=== PATIENT | male | born 1995 ===

== ENCOUNTER 2025-01-17 21:19 | Emergency (ER) | payer SELFPAY ==
[2025-01-17 21:30] VITALS: BP 155/76
[2025-01-17 21:31] VITALS: BP 155/76
[2025-01-17] MEDS: TYLENOL 1000 MG PO (22:29)
--- NOTE | 2025-01-17 22:29 | ED.GENMED ---
History of Present Illness
General
Chief Complaint: Fever
Source: patient and spouse
Exam Limitations: none
Time Seen by Provider: 01/17/25 22:09
Nursing documentation reviewed up to this point in time: agreed with
History of Present Illness
History of Present Illness:
29-year-old male with no chronic medical issues presents with his for evaluation of flulike illness. Patient reports onset of symptoms a few days ago and they have gotten worse over the past 48 hours. He reports initially he was having
headaches and general fatigue. Over the past 48 hours developed severe myalgias, fever and chills, nausea. Today had some diarrhea. Came to the ER to be evaluated. He has not had any cough or shortness of breath. He denies any abdominal pain.
Mild nausea but no vomiting. He has not noted any rash. Denies any known sick contacts, recent travel or bug bites.
Review of Systems
Review of Systems
All Other Systems: ROS reviewed and negative except as documented in HPI and ROS
Constitutional: Reports fever, fatigue and chills
EENT: Reports runny nose; Denies sore throat
Respiratory: Denies cough or trouble breathing
Cardiac: Denies chest pain
ABD/GI: Reports nausea and diarrhea; Denies abdominal pain or vomiting
: Denies flank pain
Musculoskeletal: Reports muscle pain and back pain; Denies neck pain
Neurological: Reports dizzy and headache
Phy Exam
Physical Exam
Physical Exam:
General: Awake, alert, oriented x3; no acute distress
Head: Normocephalic, atraumatic
Eyes: Conjunctiva normal, sclera anicteric
Throat: Airway intact, handling secretions, slight erythema in the oropharynx but no tonsillar erythema or exudate, midline uvula
Neck: Trachea midline, supple without meningismus
Lungs: Clear to auscultation bilaterally, no wheezing, rales, rhonchi
Heart: Tachycardia with regular rhythm, no murmurs, gallops, or rubs
Abd: Soft, non distended, nontender, no palpable hepatosplenomegaly
Neuro: Grossly intact
Skin: no rash
Extremities: No edema in extremities, equal pulses in all extremities
Scores
Heart Failure Risk
Heart Failure Risk Score: Not Applicable
Heart Score for Chest Pain Patients
STEMI patient?: Not applicable
Withdrawal Assessment of Alcohol
Withdrawal Assessment Completed?: Not applicable
Sepsis
Sepsis Screening
Sepsis Assessment: Sepsis Ruled Out
Sepsis Screen
Sepsis Screen: Sepsis Ruled Out
Date: 01/18/25
Time: 07:45
Course
Orders/Labs/Results
Orders:
Orders
01/17/25 22:11
Acetaminophen [Tylenol] 1,000 mg PO NOW STA
01/17/25 22:26
COVID-19 Antigen Urgent
Source: Nasal Swab
Complete Blood Count/With Diff Urgent
Comprehensive Metabolic Panel Urgent
Creatine Phosphokinase Urgent
Comment: ADD ON
Monotest Urgent
Influenza A+B Rapid Molecular Urgent
BENNETT Source: Nasal Swab
Specimen Description:
01/17/25 22:27
Add On- LAB Urgent
Tests Added?: CPK
01/17/25 22:28
Ketorolac [Toradol] 15 mg IV NOW STA
01/17/25 22:29
0.9% Sodium Chloride 1000 ml [Nss] 1,000 ml IV BOLUS
01/17/25 22:37
Urinalysis Reflex To Culture Urgent
Date Specimen was Collected: 01/17/25
Time Specimen was Collected: 22:36
Urine Microscopic Reflex Cult Urgent
01/18/25 00:09
Lyme Progressive Urgent
Abnormal Lab Results
01/17/25 01/17/25
22:26 22:37
Absolute Lymphs (auto) 0.5 L 10^3/uL
(1.2-3.4)
Absolute Monos (auto) 0.8 H 10^3/uL
(0.1-0.6)
Neutrophils % 81.3 H %
(42.2-75.2)
Lymphocytes % 6.8 L %
(20.5-51.1)
Monocytes % 10.6 H %
(1.7-9.3)
Sodium 130 L mmol/L
(135-145)
Glucose 133 H mg/dl
(70-99)
ALT 59 H U/L
(0-50)
Creatine Kinase 181 H U/L
(55-170)
Ur Occult Blood Reflex 1+ A
(Negative)
Urine RBC 3-6 A /HPF
(0-2)
Urine Bacteria (Reflex) Few A
(Negative)
01/17/25 22:26
01/17/25 22:26
Vital Signs
Initial and Last Documented VS:
Initial Vital Signs
Temp Pulse Resp BP Pulse Ox
39.4 C H 100 22 155/76 96
01/17/25 21:30 01/17/25 21:30 01/17/25 21:30 01/17/25 21:30 01/17/25 21:30
Last Documented Vital Signs
Temp Pulse Resp BP Pulse Ox
37.4 C 109 18 155/76 99
01/17/25 22:39 01/17/25 21:31 01/17/25 21:31 01/17/25 21:31 01/17/25 22:33
MDM/Problems Addressed
Differential Diagnosis Includes:
Influenza, COVID, mono, other viral illness, rhabdomyolysis; no symptoms to suggest pneumonia, UTI or intra-abdominal emergency
MDM/Problems Addressed:
29-year-old male presents for evaluation of flulike illness as described above. He is hypertensive, tachycardic and febrile here. Physical exam is as above. Plan to check labs including CBC and a CMP, CPK. Check Monospot. Swab for COVID and
flu. Check urinalysis. Provide fluids, Toradol, Tylenol. Reassess after the above.
Labs reviewed: CBC shows neutrophil predominance with low leukocytes but no leukocytosis. Chemistry shows mild hyponatremia. CPK marginal. Urinalysis bland. [place] negative, COVID flu negative. Clinical reassessment patient feeling much better,
vital signs improved. Suspect this is likely viral illness. Stable for discharge with supportive care. All questions answered.
*Pulse Oximetry
SaO2: 99
Oxygen Mode of Delivery: Room air
Patient hypoxic: no (99%)
*Critical Care Note
Total Time (30-74mins, 75-104mins- exclusive of procedures): Not Applicable
Data Reviewed
Source: patient and spouse
ED Attending Note
-
Portions of this chart may have been created with voice recognition software.� Occasional wrong word or��sound alike� substitutions may have occurred due to the inherent limitations of voice recognition software.
Discharge Plan
Departure
Patient Disposition: Home (Routine Discharge)
Date of Disposition: 01/18/25
Time of Disposition: 00:38
Patient with high blood pressure during this ER visit?: Yes
Discharge Problem:
Acute viral syndrome
Instructions: Viral Syndrome (DC)
Prescriptions:
No Action
No Current Medications
0
Referrals:
Adelaida Rivera MD [Family Provider]
Activity Restrictions/Additional Instructions:
You should drink plenty of fluids and can take Tylenol and Motrin over the next few days to help control your body aches and fever. You should make sure that you are getting plenty of rest. If your symptoms are worsening or if you are not able to
manage at home or if they are not improving after a few days you should return to the ER for reassessment.
Interventions
Interventions:
*Risk Screen - Suicide Last Done: 01/17/25 21:31
*General Assessment Last Done: 01/17/25 21:31
*Neglect/Abuse Screening Last Done: 01/17/25 21:31
*ED- Fall Risk Assessment Last Done: 01/17/25 22:33
*ED COVID-19 Vaccine History Last Done: 01/17/25 22:33
*ED Influenza Vaccine History Last Done: 01/17/25 22:33
*Nursing Disposition Last Done: 01/18/25 01:03
ED- Neurological Assessment Last Done: 01/17/25 22:33
ED-Skin Assessment Last Done: 01/17/25 22:33
Discharge Date and Time
Discharge Date/Time: 01/18/25 01:03
Print Language: SINHALA
[2025-01-17] MEDS: NSS 1000 IV (22:31)
[2025-01-17 22:32] VITALS: BMI 40.9
[2025-01-17] MEDS: TORADOL 15 MG IV (22:35)
[2025-01-17 22:39] LABS: Hematocrit 43.8 % (39.0-52.0); Hemoglobin 15.4 g/dL (13.0-18.0); Mean Corp Hgb Conc. 35.2 g/dL (33.0-37.0); Mean Corpuscular Volume 85.2 fL (80.0-94.0); Nucleated Red Blood Cells % 0 % (-); Platelet Count 259 10^3/uL (130-400); Red Cell Dist. Width 12.4 % (11.5-14.5)
[2025-01-17 22:46] LABS: Urine Character Clear (Clear)
[2025-01-17 22:51] LABS: ALT (SGPT) 59 U/L (0-50); AST (SGOT) 30 U/L (17-59); Albumin 4.5 g/dl (3.5-5.0); Alkaline Phosphatase 50 U/L (38-126); Blood Urea Nitrogen 12 mg/dl (9-20); COVID-19 Antigen Negative (Negative); Calcium 9.9 mg/dl (8.4-10.2); Carbon Dioxide 22 mmol/L (22-30); Chloride 100 mmol/L (98-107); Estimated Creatinine Clearance > 125 ml/min; Glucose 133 mg/dl (70-99); Potassium 4.3 mmol/L (3.5-5.1); Sodium 130 mmol/L (135-145); Total Protein 7.8 g/dl (6.3-8.2); eGFR > 60.00
[2025-01-17 23:00] LABS: Urine Squamous Cell 0-2 /LPF (Few); Urine White Cell 0-2 /HPF (0-5)
[2025-01-20 13:20] LABS: Lyme Antibody Screen, EIA Negative (Negative)
== END 2025-01-18 01:03 | disposition home or self-care (01) ==
LOC: EMR 21:19
PROVIDERS: EMERGENCY PHYSICIAN Emergency Medicine; FAMILY PHYSICIAN Internal Medicine
DX: B34.9 Viral infection, unspecified (principal); I10 Essential (primary) hypertension
CPT/HCPCS: 99285; 96374; 80053; 81003; 81015; 82550; 85025; 86308; 86618; 87502; 87811